=== PATIENT | female | born 1960 | race Caucasian/White ===

== ENCOUNTER 2024-11-15 07:39 | Inpatient (IN) | payer MEDICAID ==
[~2024-11-15] VITALS: Ht 160 cm; Wt 50.8 kg
[2024-11-15 08:52] LABS: MEAN PLATELET VOLUME 9.1 FL (7.4-10.4); RED CELL DISTRIBUTION WIDTH 15.8 % (11.5-14.5)
[2024-11-15 09:02] LABS: CREATININE 1.03 MG/DL (0.40-0.90); TOTAL CARBON DIOXIDE 26.7 MMOL/L (24-32); eCRCL 42 ML/MIN; eGFR 54 ML/MIN
--- NOTE | 2024-11-15 09:14 | Physician Documentation ---
History of Present Illness General Chief Complaint: Vomiting Stated Complaint: VOMITING Time Seen by MD: 08:49 Primary Medical Doctor: RANDELL Mode of Arrival: POV, Ambulatory History of Present Illness Initial Comments The patient is a 64-year-old female who presents here with nausea and vomiting for the past 10 days. She is a poor historian but reports a history of hypertension and previous surgery on her aorta and possibly an iliofemoral bypass, 3-4 years ago. She denies abdominal pain, diarrhea. She does not know what medications she takes. She feels dehydrated. She has had very small bowel movements and passed gas. Medication Reconciliation Allergies: Coded Allergies: No Known Allergies (Unverified , 11/15/24) Review of Systems ROS Constitutional: Denies chills, fatigue, fever, weight gain or weight loss. HEENT: Denies hearing loss, sinus pressure or visual changes. Respiratory: Denies cough, shortness of breath or wheezing. Cardiovascular: Denies chest pain, pain while walking (claudication), edema or palpitations. Gastrointestinal: Nausea and vomiting for the past 10 days, no bleeding Genitourinary: Denies painful urination (dysuria), excessive amount of urine (polyuria) or urinary frequency. Metabolic/Endocrine: Denies cold intolerance, heat intolerance, excessive thirst (polydipsia) or excessive hunger (polyphagia). Neurological: Denies dizziness, extremity numbness, extremity weakness, headaches, seizures or tremors. Psychiatric: Denies anxiety or depression. Integumentary: Denies breast discharge, breast lump, hives, mole change(s), rash or skin lesion. Musculoskeletal: Denies back pain, joint pain, joint swelling or neck pain. Hematologic: Denies easily bleeding, easily bruises, lymphedema or issues with blood clots. Immunologic: Denies food allergies or seasonal allergies. Physical Exam Physical Exam Vital Signs: Temperature: 96.6, Source: Temporal, Heart Rate: 87, Respiratory Rate: 18, BP: 112/76, Pulse Oximetry: 96, Weight: 46.820 Oxygen Flow Rate: 0 Physical Exam Physical Exam Vitals and nursing note reviewed. Constitutional: General: Patient is awake, alert, oriented x 4 in no acute distress and well appearing. Speech is clear and lucid. Appearance: Normal appearance. Patient is not ill-appearing, toxic-appearing or diaphoretic. HENT: Head: Normocephalic and atraumatic. Mouth/Throat: Mouth: Mucous membranes are dry. Pharynx: Oropharynx is clear. Eyes: General: No scleral icterus. Extraocular Movements: Extraocular movements intact. Pupils: Pupils are equal, round, and reactive to light. Neck: Supple, no Kernig or Brudzinski sign. Cardiovascular: Rate and Rhythm: Normal rate and regular rhythm. Heart sounds: No murmur heard. Pulmonary: Effort: No respiratory distress. Breath sounds: No wheezing, rhonchi or rales. Abdominal: General: There is no distension. Palpations: There is no fluid wave, hepatomegaly or mass. Tenderness: There is no abdominal tenderness. There is no guarding. Musculoskeletal: General: No swelling or deformity. Skin: Coloration: Skin is not jaundiced. Findings: No erythema or rash. Neurological: Mental Status: Patient is alert. Progress Results/Orders Results/Orders Orders - HENRIQUE BENEDICT MD Ct Abdomen Pelvis (11/15/24 09:30) Page Hospitalist (11/15/24 13:04) Completed Orders - HENRIQUE BENEDICT MD Cbc/Diff (11/15/24 08:29) Lipase (11/15/24 08:29) CMP (11/15/24 08:29) Man Diff (11/15/24 08:36) Ct Abdomen Pelvis (11/15/24 09:30) Normal Saline 1000ml (0.9% Sodium Chlori (11/15/24 09:10) Normal Saline 1000ml (0.9% Sodium Chlori (11/15/24 09:10) Potassium Cl 10meq/100ml Bag (Potassium (11/15/24 09:10) Magnesium Sulf-Water 4g/100ml (Magnesium (11/15/24 09:10) Iohexol 300mg/Ml 100ml Inj. (Omnipaque-3 (11/15/24 09:17) Ua W/Microscopic, Cult If Ind (11/15/24 10:37) Medications Received in ER Medications (Trade) Dose Ordered Sig/Kacey Route PRN Reason Start Time Stop Time Status Last Admin Dose Admin Sodium Chloride 1,000 ml @ 1,000 mls/hr ONCE ONCE IV 11/15/24 09:10 11/15/24 10:09 DC 11/15/24 09:49 1,000 MLS/HR Sodium Chloride 1,000 ml @ 1,000 mls/hr ONCE ONCE IV 11/15/24 09:10 11/15/24 10:09 DC 11/15/24 09:50 1,000 MLS/HR Potassium Chloride 100 ml @ 100 mls/hr Q1H IV 11/15/24 09:10 11/15/24 10:09 DC 11/15/24 10:16 100 MLS/HR Magnesium Sulfate 100 ml @ 25 mls/hr ONCE ONCE IV 11/15/24 09:10 11/15/24 13:09 DC 11/15/24 10:21 25 MLS/HR Vital Signs 11/15/24 11/15/24 11/15/24 11/15/24 07:47 08:14 09:01 09:41 Temp 96.6 96.6 96.6 Pulse 98 87 98 Resp 16 16 18 17 B/P (MAP) 112/81 112/76 (88) 147/79 (101) Pulse Ox 95 96 98 O2 Flow Rate 0 0 0 11/15/24 11/15/24 10:59 12:11 Temp 96.6 96.6 Pulse 86 85 Resp 20 19 B/P (MAP) 124/69 (87) 119/69 (86) Pulse Ox 91 95 O2 Flow Rate 0 2.0 Laboratory Tests Test 11/15/24 08:36 11/15/24 10:37 White Blood Count 10.5 Red Blood Count 5.95 H Hemoglobin 19.1 *H Hematocrit 57.7 H Mean Corpuscular Volume 97.0 Mean Corpuscular Hemoglobin 32.1 H Mean Corpuscular Hemoglobin Concent 33.1 Red Cell Distribution Width 15.8 H Platelet Count 313 Mean Platelet Volume 9.1 Neutrophils (%) (Auto) 78.4 H Lymphocytes (%) (Auto) 5.0 L Monocytes (%) (Auto) 16.0 H Eosinophils (%) (Auto) 0.3 Basophils (%) (Auto) 0.3 Neutrophils # (Auto) 8.2 H Lymphocytes # (Auto) 0.5 L Monocytes # (Auto) 1.7 H Eosinophils # (Auto) 0.0 Basophils # (Auto) 0.0 CBC Comment Differential Total Cells Counted 100 Neutrophils % (Manual) 43.0 Band Neutrophils % 29.0 H Lymphocytes % (Manual) 11.0 L Monocytes % (Manual) 16.0 H Eosinophils % (Manual) 1.0 Platelet Estimate Normal Red Blood Cell Morphology Normal Basophilic Stippling Sodium Level 128 L Potassium Level 3.3 L Chloride Level 84 L Carbon Dioxide Level 26.7 Anion Gap 17 H Blood Urea Nitrogen 40 H Creatinine 1.03 H Estimated GFR/1.73 m2 54 BUN/Creatinine Ratio 38.8 H Glucose Level 95 Calcium Level 8.7 Total Bilirubin 0.7 Aspartate Amino Transf (AST/SGOT) 16 Alanine Aminotransferase (ALT/SGPT) 12 Alkaline Phosphatase 71 Total Protein 7.8 Albumin 3.5 Globulin 4.3 Albumin/Globulin Ratio 0.8 L Lipase 15 L Chemistry Comments Urine Specimen Description Cln catch midstream Urine Color Yellow Urine Clarity Clear Urine pH 6.0 Urine Specific Icard <=1.005 Urine Protein Trace Urine Glucose (UA) Negative Urine Ketones >=80 Urine Occult Blood Trace-intact Urine Nitrite Negative Urine Bilirubin Small Urine Urobilinogen 0.2 Urine Leukocyte Esterase Negative Urine RBC 3-10 Urine WBC 0-4 Urine Squamous Epithelial Cells Moderate Urine Bacteria Few Urine Culture Indicated Not ind Volume Urine Centrifuged 10 ml Urine Comment Medical Decision Making Findings This 64-year-old female presents with 10 days of nausea and vomiting, especially at night. She is dehydrated. She has hyponatremia, hypochloremia and hypokalemia. I am hydrating her in providing electrolyte replacement. I am also getting a CT scan or abdomen vis-a-vis her prior aortic surgery. She will require admission. Departure Disposition: ADMITTED INPATIENT Admission Level of Care: Med/Surg Impression: Primary Impression: Nausea & vomiting Additional Impression: Dehydration with hyponatremia Condition: Stable Referrals: NO PRIMARY CARE PROVIDER (PCP) Signature Scribe Signature: . Attestation: . HENRIQUE BENEDICT MD Nov 15, 2024 09:14
[2024-11-15] MEDS ORDERED: iohexol 300mg/ml 100ml inj. ONE (09:17)
[2024-11-15] MEDS: normal saline 1000ml 1,000 ML IV ONE ×2 (09:49→09:50)
[2024-11-15 10:02] LABS: BANDS% (MANUAL) 29.0 % (0-10); EOSINOPHILS % (MANUAL) 1.0 % (0-6); LYMPHOCYTES % (MANUAL) 11.0 % (21-51); MONOCYTES % (MANUAL) 16.0 % (2-12); NEUTROPHILS % (MANUAL) 43.0 % (42-75)
[2024-11-15 10:03] LABS: PLATELET ESTIMATE NORMAL
[2024-11-15] MEDS: potassium CL 10mEq/100ml bag 100 ML IV SCH (10:16)
[2024-11-15] MEDS: magnesium sulf-water 4G/100mL 100 ML IV ONE (10:21)
--- NOTE | 2024-11-15 10:22 | RADIOLOGY REPORT ---
CT CT ABDOMEN PELVIS W/ IV CONTRAST INDICATION: N/V, prior aortic surgery EXAM DATE: 11/15/2024 09:23 AM COMPARISON: None RADIATION DOSE: CTDIvol: 5 mGy, DLP: 245 mGy*cm PROCEDURE: Helical CT images were obtained of the abdomen and pelvis with IV contrast Sagittal and coronal reconstructions are provided. ORAL CONTRAST: None. ADDITIONAL IMAGES / REFORMATS: None All CT scans at this medical facility are performed using dose modulation techniques as appropriate to a performed exam including the following: Automated exposure control was utilized; adjustment of the MA and/or KV according to patient size; and use of iterative reconstruction technique. FINDINGS: LUNG BASE: Moderate emphysema. LIVER: Normal. GALLBLADDER AND BILIARY TREE: No calcified gallstones. Normal caliber wall. No intra- or extrahepatic biliary ductal dilation. PANCREAS: Normal. SPLEEN: Normal. BOWEL: Multiple distended loops of small bowel measures up to 3.4 cm could be ileus or less likely obstruction. Appendix appears normal. Moderate colonic diverticulosis. ADRENALS: Normal. KIDNEYS AND URETER: Normal. BLADDER: Normal. REPRODUCTIVE ORGANS: Normal. LYMPH NODES:No lymphadenopathy. PERITONEUM: Trace pelvic fluid is nonspecific. VESSELS: Scattered atherosclerotic calcifications are noted. Aortoiliac bypass graft appears patent. RETROPERITONEUM: Normal. ABDOMINAL WALL: Normal. BONES: Scattered osseous degenerative changes are noted. IMPRESSION: Multiple distended loops of small bowel measures up to 3.4 cm could be ileus or less likely obstruction.
[2024-11-15 10:49] LABS: LEUKOCYTE ESTERASE ,URINE NEGATIVE (Neg); NITRITES, URINE NEGATIVE (Neg); OCCULT BLOOD,URINE TRACE-INTACT (Neg)
[2024-11-15 10:57] LABS: UA COLLECTION TYPE CLN CATCH MIDSTREAM
[2024-11-15 11:36] LABS: SQUAMOUS EPITHELIAL CELL,UR MODERATE /LPF (FEW)
[2024-11-15] MEDS ORDERED: magnesium Cl slow-release 64mg tablet PO PRN (14:30)
[2024-11-15] MEDS ORDERED: potassium Cl 20 mEq SR tablet PO PRN (14:30)
[2024-11-15] MEDS ORDERED: mag hydrox/Alum hydrox/simeth 30ml oral suspension PO PRN (14:30)
[2024-11-15] MEDS ORDERED: magnesium sulf-water 4G/100mL 100 ML IV PRN (14:30)
[2024-11-15] MEDS ORDERED: magnesium sulf-water 2g/50mL 50 ML IV PRN (14:30)
[2024-11-15] MEDS ORDERED: magnesium hydroxide 30ml (MOM) UD suspension PO PRN (14:30)
[2024-11-15] MEDS: ondansetron/PF 4mg/2ml inj IV SCH (15:34)
[2024-11-15] MEDS: normal saline 1000ml 1,000 ML IV SCH (15:34)
[2024-11-15 15:38] LABS: APTT 31 SECONDS (22-32); INR 1.1 INR
[2024-11-15 15:59] LABS: CREATININE 0.83 MG/DL (0.40-0.90); PHOSPHORUS 2.9 MG/DL (2.3-4.5); eCRCL 52 ML/MIN; eGFR 70 ML/MIN
[2024-11-15 16:03] LABS: TOTAL CARBON DIOXIDE 24.3 MMOL/L (24-32)
--- NOTE | 2024-11-15 17:37 | RADIOLOGY REPORT ---
CLINICAL HISTORY: post ng tube placement TECHNIQUE: Single view of the chest was obtained. COMPARISON: None FINDINGS: The heart size and pulmonary vasculature are normal. The lungs are clear. NG tube terminates at the stomach. IMPRESSION: NO ACUTE CARDIOPULMONARY PROCESS.
--- NOTE | 2024-11-15 17:46 | HISTORY AND PHYSICAL-Residence ---
History & Physical Providers to Resident Creating Document: JENNIFER DUQUE RES ~ History of Present Illness Primary Medical Doctor: RANDELL Reason for Admit\Complaint: Nausea and vomiting History of Present Illness 64-year-old female with history of hypertension and stroke came to the ER with complaints of nausea and vomiting for the past 10 days. She states that she vomits as soon as she eats or drinks anything and that it is sometimes yellow and sometimes dark green. She denies hematemesis and abdominal pain. She is a poor historian but reports minimal p.o. intake for the last 10 days including fluids due to nausea and vomiting. She reports that her last bowel movement was 2 weeks ago but has passage of flatus. She states that she feels lightheaded but has had no falls. She states that she has lost weight but unable to specify how much. She denies recent travel, change in foods or medications, fever, chills. She states that she has central chest discomfort when she is throwing up and feels weak. She also states that she has chronic lower back pain and attributes it to sciatic nerve pain. 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 She denies chest pain, palpitations, shortness of breath, headache, loss of consciousness, confusion, pruritus, burning micturition, tingling in extremities, swelling of lower extremities. Allergies: Coded Allergies: No Known Allergies (Unverified , 11/15/24) Past Medical History Past Medical History Hypertension Stroke Past Surgical History Surgical History Comment Surgery on her aorta Iliofemoral bypass Past Social History Social History Comment She quit smoking 3 years ago. She used to smoke 1 pack/day for approximately 20 years She denies drinking alcohol She denies any recreational drug use She lives alone at home ROS ROS Constitutional: She reports weight loss and lightheadedness, No fever, chills, weight gain Eyes: No pain, erythema, discharge, blurring of vision ENT: No sore throat, epistaxis, tinnitus Cardiovascular: No chest pain, palpitations, syncope, lower extremity edema, paroxysmal nocturnal dyspnea Respiratory: No Shortness of breath and cough, No hemoptysis. Gastrointestinal: Reports Nausea and vomiting, constipation and decreased appetite. No Abdominal pain, diarrhea, hematemesis or melena. Musculoskeletal: No swelling, pain in bilateral lower legs. Integumentary: No change in skin, hair, nails. No swelling, bruising, abrasions Neurologic: Residual left-sided weakness, No headache, neck pain, numbness or tingling of the extremities, Psychiatric: No delusions, depression, loss of interest in normal activity or change in sleep pattern, hallucinations, suicidal ideations Endocrine: Reports decreased appetite, No fatigue, no weakness. polydipsia, polyuria, heat or cold intolerance, sweating, dry skin Hematological: No bleeding, petechiae, bruising Allergies: No asthma or urticaria Exam Vitals: Vital Signs Date Time Temp Pulse Resp B/P (MAP) Pulse Ox O2 Delivery O2 Flow Rate FiO2 11/15/24 17:00 90 16 125/65 (85) 96 0 11/15/24 15:51 97.9 General: Awake , alert, and oriented x4, appears cachectic, in mild distress HEENT: Atraumatic, normocephalic, EOMI, anicteric sclera ; pink conjunctiva, dry mucous membranes Neck: Trachea midline. Supple, full range of motion, no JVD Cardiac: Regular rhythm, regular rate with no murmurs all over the precordium. Respiratory: Equal breath sounds bilaterally, no tachypnea, no wheezing ,rub or rales, Chest wall is symmetric and without deformity. Gastrointestinal: Abdomen symmetric, non-distended, soft, non-tender, mildly sluggish bowel sounds, no hepatosplenomegaly Musculoskeletal: No pedal edema, no cyanosis Neurological: Speech is clear, alert, and oriented x 4. No motor or sensory deficit, deep tendon reflexes normal, cerebellar intact. Cranial nerves II-XII intact. Skin: Warm and dry Diagnostic Data Last Recorded Lab Results: 11/15/24 0836 11/15/24 1453 Diagnostic Data: Laboratory Tests Test 11/15/24 14:53 Prothrombin Time 11.0 SECONDS (9.0-12.0) INR International Normalized Ratio 1.1 INR Activated Partial Thromboplast Time 31 SECONDS (22-32) Coagulation Comments Additional Plan Nausea, vomiting and constipation probably 2/2 ileus vs small bowel obstruction CBC is normal Sodium is 128, potassium 3.3 Creatinine is elevated, probably due to dehydration Liver panel normal Lipase is [address] shows multiple distended loops of small bowel, measuring up to 3.4 cm, could be ileus or less likely obstruction Plan: Started on NPO NG tube placed- 150 mL dark green gastric drainage Started on NS 100 mL/hour, IV Zofran 4 mg q.6h, IV Protonix 40 mg Monitor electrolytes We will consider surgery if deterioration of patient Hyponatremia, likely hypovolemic secondary to vomiting Sodium was 128 on admission 2 L NS given in ED and started NS at 100 mL Sodium has up trended to 133 Monitor BMP Hypokalemia possibly secondary to vomiting Potassium was 3.3 on admission Potassium replacement protocol in place Monitor BMP ERIK, probably due to prerenal-dehydration Vasomotor nephropathy Creatinine was 1.03 initially, with BUN of 40 BUN/Cr was elevated-38.8 Continue fluids Monitor BNP Hypertension Vitals are normal We will continue home medication once med reconciliation done Monitor blood pressure #Pending med reconciliation Code status: Full code DVT prophylaxis: Heparin GI prophylaxis: Protonix Pain management: Tylenol p.r.n. Diet/nutrition: NPO Prognosis: Guarded Disposition: Continue medical management, PT eval and DC plan Resident MD attestation: The patient note has been reviewed and supervised by senior residents PGY-2/ PGY-3. Patient was seen, examined and discussed with attending physician. Jennifer Duque MD Internal Medicine resident, PGY-1 Date of Service: Nov 15, 2024 Billing Provider: GILBERT WOODS MD Common Visit Codes: 42982-[facility] INP/OBS CARE (HIGH) JENNIFER DUQUE, RES Nov 15, 2024 17:46 GILBERT WOODS MD Nov 16, 2024 08:43
[2024-11-15 17:59] LABS: LEUKOCYTE ESTERASE ,URINE NEGATIVE (Neg); NITRITES, URINE NEGATIVE (Neg); OCCULT BLOOD,URINE TRACE-INTACT (Neg)
[2024-11-15 18:12] LABS: UA COLLECTION TYPE URINAL
[2024-11-15 18:14] LABS: SQUAMOUS EPITHELIAL CELL,UR FEW /LPF (FEW)
[2024-11-15] MEDS: docusate sod 100mg capsule PO SCH (19:39)
[2024-11-15 19:43] VITALS: BP 117/66; PULSE 91; RESP 17; TEMP 97.5; O2SAT 92
[2024-11-15] MEDS: heparin, porcine 5000 units/ml vial SQ SCH (19:43)
[2024-11-15 20:00] VITALS: BP_SYST 116; BP_SYST 117; BP_SYST 125; BP_DIAS 66; BP_DIAS 67; BP_DIAS 71; PULSE 100; PULSE 105; PULSE 91; RESP 17; O2SAT 92
[2024-11-15] MEDS: K and/or MAG REPLACEMENT MC SCH (20:00)
[2024-11-15 20:24] LABS: CHOL/HDL RATIO 1.9 (0.00-4.99); LDL CHOLESTEROL 30 MG/DL (50-100)
[2024-11-15] MEDS: potassium Cl 40MEQ/1/2NS 520ml 520 ML IV PRN (22:00)
[2024-11-16] VITALS (7 sets, daily range): BP systolic 106–149; BP diastolic 60–68; PULSE 69–89; RESP 14–16; TEMP 97.5–98.3; O2SAT 92–94
[2024-11-16 04:42] LABS: MEAN PLATELET VOLUME 9.2 FL (7.4-10.4); RED CELL DISTRIBUTION WIDTH 15.8 % (11.5-14.5)
[2024-11-16 04:55] LABS: CHOL/HDL RATIO 2.0 (0.00-4.99); CREATININE 0.62 MG/DL (0.40-0.90); LDL CHOLESTEROL 24 MG/DL (50-100); TOTAL CARBON DIOXIDE 23.5 MMOL/L (24-32); eCRCL 70 ML/MIN; eGFR > 90 ML/MIN
[2024-11-16 07:57] LABS: LYMPHOCYTES % (MANUAL) 8.0 % (21-51); NEUTROPHILS % (MANUAL) 35.0 % (42-75)
[2024-11-16 07:58] LABS: BANDS% (MANUAL) 40.0 % (0-10)
[2024-11-16 07:59] LABS: EOSINOPHILS % (MANUAL) 2.0 % (0-6); MONOCYTES % (MANUAL) 15.0 % (2-12)
[2024-11-16 08:00] LABS: PLATELET ESTIMATE NORMAL
[2024-11-16] MEDS: dextrose 50%-water 50ml dispensing syringe IV ONE (12:34)
[2024-11-16] MEDS ORDERED: BENA10TA74 PO (16:33)
[2024-11-16] MEDS ORDERED: APIX5TAB3 PO (16:33)
[2024-11-16] MEDS ORDERED: HYDR500C2 PO (16:33)
[2024-11-16] MEDS ORDERED: ASPI-1265 PO (16:33)
[2024-11-16] MEDS ORDERED: ATOR40TA72 PO (16:33)
--- NOTE | 2024-11-16 19:44 | PROGRESS NOTE- Residence ---
Progress Note - Resident Providers to CC Resident Creating Document: JENNIFER DUQUE RES ~ Antibiotic Timeout Antibiotic Ordered?: No Subjective Patient was seen and examined bedside. She states that she has passed flatus, but did not have a bowel movement. She does not report any nausea. She states that her symptoms have improved. She is not in apparent distress. Objective Vital Signs Date Time Temp Pulse Resp B/P (MAP) Pulse Ox O2 Delivery O2 Flow Rate FiO2 11/16/24 08:30 16 92 Room Air 0.0 11/16/24 08:01 97.5 76 117/60 (79) Result Diagram: 11/16/24 0420 11/16/24 0420 Awake , alert, and oriented x4, appears cachectic, in mild distress HEENT: Atraumatic, normocephalic, EOMI, anicteric sclera ; pink conjunctiva, dry mucous membranes Neck: Trachea midline. Supple, full range of motion, no JVD Cardiac: Regular rhythm, regular rate with no murmurs all over the precordium. Respiratory: Equal breath sounds bilaterally, no tachypnea, no wheezing ,rub or rales, Chest wall is symmetric and without deformity. Gastrointestinal: Abdomen symmetric, non-distended, soft, non-tender, hypoactive bowel sounds, no hepatosplenomegaly Musculoskeletal: No pedal edema, no cyanosis Neurological: Speech is clear, alert, and oriented x 4. No motor or sensory deficit, deep tendon reflexes normal, cerebellar intact. Cranial nerves II-XII intact. Skin: Warm and dry Coagulation Studies Laboratory Tests Test 11/15/24 14:53 Prothrombin Time 11.0 SECONDS (9.0-12.0) INR International Normalized Ratio 1.1 INR Activated Partial Thromboplast Time 31 SECONDS (22-32) Coagulation Comments Assessment Assessment 64-year-old female presented with complaints of nausea and vomiting, admitted for possible ileus or obstruction. Plan Plan Nausea, vomiting and constipation probably 2/2 ileus vs small bowel obstruction CBC is normal Sodium is 128, potassium 3.3 Creatinine is elevated, probably due to dehydration Liver panel normal Lipase is [address] shows multiple distended loops of small bowel, measuring up to 3.4 cm, could be ileus or less likely obstruction Plan: Started on NPO NG tube placed- 150 mL dark green gastric drainage Started on NS 100 mL/hour, IV Zofran 4 mg q.6h, IV Protonix 40 mg Monitor electrolytes We will consider surgery if deterioration of patient 11/16/24: Symptoms improved, passed flatus Her glucose was 75, started her on D5 NS Started on clear liquid diet, which she tolerated Advanced her to full liquid diet, please continue monitoring her tolerance Started Colace 100 mg p.o BID Since she has started clear liquid diet, we have discontinued her D5 NS and continued NS at 100 mL/hour Hyponatremia, likely hypovolemic secondary to vomiting Sodium was 128 on admission 2 L NS given in ED and started NS at 100 mL Sodium has up trended to 133 Monitor BMP 11/16/24: Sodium is 131 Continue NS at 100 mL/hour Monitor BMP Hypokalemia possibly secondary to vomiting Potassium was 3.3 on admission Potassium replacement protocol in place Monitor BMP 11/16/24: Potassium up trended to 4.3 Monitor BMP ERIK, probably due to prerenal-dehydration Vasomotor nephropathy Creatinine was 1.03 initially, with BUN of 40 BUN/Cr was elevated-38.8 Continue fluids Monitor BMP 11/16/24: Creatinine downtrended to 0.62 BUN downtrended to 25 BUN/Cr elevated to 40.3 Continue fluids Monitor BMP Coronary artery disease Continued her home medications aspirin, apixaban, atorvastatin Lipid profile normal Follow up outpatient Hypertension Vitals are normal We will continue home medication once med reconciliation done Monitor blood pressure Dupuytren's contracture Follow up outpatient Sciatic pain 11/16/24: Ordered tramadol 50 mg p.o. Follow up outpatient Code status: Full code DVT prophylaxis: Eliquis GI prophylaxis: Protonix Pain management: Tylenol p.r.n. Diet/nutrition: Full liquid diet Prognosis: Guarded Disposition: Continue medical management, advance diet as tolerated, PT eval and DC plan Resident attestation: The patient note has been reviewed and supervised by senior residents PGY-2/ PGY-3. Patient was seen, examined and discussed with attending physician. Jennifer Duque MD Internal Medicine resident, PGY-1 [facility] Date of Service: Nov 16, 2024 Billing Provider: GILBERT WOODS MD, PREETHI, RES Nov 16, 2024 19:44
[2024-11-16] MEDS: docusate sod 100mg capsule PO SCH (20:35)
[2024-11-17] VITALS (9 sets, daily range): BP systolic 100–112; BP diastolic 62–76; PULSE 13–95; RESP 14–20; TEMP 97.6–98.4; O2SAT 90–93
[2024-11-17] MEDS: ondansetron/PF 4mg/2ml inj IV PRN (00:05)
[2024-11-17 04:48] LABS: MEAN PLATELET VOLUME 9.0 FL (7.4-10.4); RED CELL DISTRIBUTION WIDTH 15.7 % (11.5-14.5)
[2024-11-17 04:54] LABS: CREATININE 0.59 MG/DL (0.40-0.90); TOTAL CARBON DIOXIDE 22.9 MMOL/L (24-32); eCRCL 73 ML/MIN; eGFR > 90 ML/MIN
[2024-11-17 07:26] LABS: BANDS% (MANUAL) 9.0 % (0-10); EOSINOPHILS % (MANUAL) 2.0 % (0-6); LYMPHOCYTES % (MANUAL) 10.0 % (21-51); MONOCYTES % (MANUAL) 14.0 % (2-12); NEUTROPHILS % (MANUAL) 65.0 % (42-75); PLATELET ESTIMATE NORMAL
[2024-11-17] MEDS: dextrose 50%-water 50ml dispensing syringe IV ONE (07:48)
--- NOTE | 2024-11-17 15:21 | PROGRESS NOTE- Residence ---
Progress Note - Resident Providers to CC Resident Creating Document: JENNIFER DUQUE RES ~ Antibiotic Timeout Antibiotic Ordered?: No Subjective Patient was seen and examined bedside. She reported that she vomited last night after eating chicken broth. She states that she has diarrhea since yesterday. Objective Vital Signs Date Time Temp Pulse Resp B/P (MAP) Pulse Ox O2 Delivery O2 Flow Rate FiO2 11/17/24 10:27 107/63 (78) 104/66 (79) 102/65 (77) 11/17/24 10:19 84 11/17/24 10:00 98.4 14 92 Room Air 11/17/24 07:49 0.0 Result Diagram: 11/17/24 0418 11/17/24 0418 Awake , alert, and oriented x4, appears cachectic, in mild distress HEENT: Atraumatic, normocephalic, EOMI, anicteric sclera ; pink conjunctiva, dry mucous membranes Neck: Trachea midline. Supple, full range of motion, no JVD Cardiac: Regular rhythm, regular rate with no murmurs all over the precordium. Respiratory: Equal breath sounds bilaterally, no tachypnea, no wheezing ,rub or rales, Chest wall is symmetric and without deformity. Gastrointestinal: Abdomen symmetric, non-distended, soft, non-tender, hypoactive bowel sounds, no hepatosplenomegaly Musculoskeletal: No pedal edema, no cyanosis Neurological: Speech is clear, alert, and oriented x 4. No motor or sensory deficit, deep tendon reflexes normal, cerebellar intact. Cranial nerves II-XII intact. Skin: Warm and dry Coagulation Studies Laboratory Tests Test 11/15/24 14:53 Prothrombin Time 11.0 SECONDS (9.0-12.0) INR International Normalized Ratio 1.1 INR Activated Partial Thromboplast Time 31 SECONDS (22-32) Coagulation Comments Assessment Assessment 64-year-old female presented with complaints of nausea and vomiting, admitted for possible ileus or obstruction. Plan Plan Nausea, vomiting and constipation probably 2/2 ileus vs small bowel obstruction CBC is normal Sodium is 128, potassium 3.3 Creatinine is elevated, probably due to dehydration Liver panel normal Lipase is [address] shows multiple distended loops of small bowel, measuring up to 3.4 cm, could be ileus or less likely obstruction Plan: Started on NPO NG tube placed- 150 mL dark green gastric drainage Started on NS 100 mL/hour, IV Zofran 4 mg q.6h, IV Protonix 40 mg Monitor electrolytes We will consider surgery if deterioration of patient 11/16/24: Symptoms improved, passed flatus Her glucose was 75, started her on D5 NS Started on clear liquid diet, which she tolerated Advanced her to full liquid diet, please continue monitoring her tolerance Started Colace 100 mg p.o BID Since she has started clear liquid diet, we have discontinued her D5 NS and continued NS at 100 mL/hour 11/17/24: Discontinued Colace 100 mg b.i.d. Restarted clear liquid diet NG tube removed Follow up CT with oral contrast Follow up C diff toxin results Hyponatremia, likely hypovolemic secondary to vomiting Sodium was 128 on admission 2 L NS given in ED and started NS at 100 mL Sodium has up trended to 133 Monitor BMP 11/16/24: Sodium is 131 Continue NS at 100 mL/hour Monitor BMP 11/17/24: Sodium is 136 Continue NS at 100 mL/hr Monitor BMP Hypokalemia possibly secondary to vomiting Potassium was 3.3 on admission Potassium replacement protocol in place Monitor BMP 11/16/24: Potassium up trended to 4.3 Monitor BMP 11/17/24: Potassium is 3.5, continue monitoring ERIK, probably due to prerenal-dehydration Vasomotor nephropathy Creatinine was 1.03 initially, with BUN of 40 BUN/Cr was elevated-38.8 Continue fluids Monitor BMP 11/16/24: Creatinine downtrended to 0.62 BUN downtrended to 25 BUN/Cr elevated to 40.3 Continue fluids Monitor BMP 11/17/24: Creatinine is 0.59 BUN downtrended to 15 BUN/Cr downtrended to 25.4 Continue fluids Monitor BMP after CT with oral contrast Coronary artery disease Continued her home medications aspirin, apixaban, atorvastatin Lipid profile normal Follow up outpatient Hypertension Continued her home medication lisinopril 10 mg p.o. daily Dupuytren's contracture Follow up outpatient Sciatic pain 11/16/24: Ordered tramadol 50 mg p.o. Follow up outpatient Code status: Full code DVT prophylaxis: Eliquis GI prophylaxis: Protonix Pain management: Tylenol p.r.n. Diet/nutrition: Clear liquid diet Prognosis: Guarded Disposition: Continue medical management, advance diet as tolerated, PT eval and DC plan Resident attestation: The patient note has been reviewed and supervised by senior residents PGY-2/ PGY-3. Patient was seen, examined and discussed with attending physician. Jennifer Duque MD Internal Medicine resident, PGY-1 [facility] Date of Service: Nov 17, 2024 Billing Provider: MAYA TRAN MD Common Visit Codes: [id number] INP/OBS CARE(HIGH) JENNIFER DUQUE, RES Nov 17, 2024 15:21 MAYA TRAN MD Nov 17, 2024 19:21
[2024-11-17] MEDS: IOHEXOL 12MG/ML oral solution 500 ML BOTTLE PO ONE (15:22)
[2024-11-17] MEDS ORDERED: ondansetron/PF 4mg/2ml inj IV PRN (15:35)
[2024-11-17 18:01] LABS: C DIFF ANTIGEN NEGATIVE (NEGATIVE); C DIFF SPECIMEN=DIARRHEA? ACCEPTABLE; C DIFFICILE TOXINS A&B NEGATIVE (Neg)
--- NOTE | 2024-11-17 20:29 | RADIOLOGY REPORT ---
Indication: SBO Technique: CT axial images of the abdomen and pelvis are obtained without contrast. Coronal and sagittal reformats were obtained. Radiation Dose Information: CTDI volume is 7.2 mGy. Dose-length product is 322 mGy*cm Comparison: CT CT ABDOMEN PELVIS W/ IV CONTRAST on DOS: 11/15/24 FINDINGS: There is limited interpretation of the abdomen and pelvis without administration of intravenous contrast. The lung bases demonstrate atelectasis. Tiny bilateral pleural effusions. Adrenal glands, spleen, pancreas and liver unremarkable in shape. Mild pericholecystic edema. Kidneys demonstrate no hydronephrosis. Stomach is partially distended. There are multiple loops of abnormally dilated small bowel measuring up to approximately 4 cm in diameter. There is bowel wall thickening of the small bowel, increased from the previous examination. There is mesenteric edema, stranding and small amount of ascites fluid, increased from previous examination. Colonic diverticula. Contrast within the large bowel. Aortobifem bypass graft. Swirling of the mesentery. The SMV is displaced to the left of the SMA. Partially distended. Free pelvic fluid. Soft tissue edema / anasarca. [id number] thoracolumbar degenerative disc disease. IMPRESSION: Limited evaluation without contrast. Diffuse small bowel dilatation, bowel wall thickening with surrounding stranding, small amount of ascites fluid. Overall this is increased from the previous examination. Differential considerations would include enteritis, inflammatory disease, partial SBO. Swirling of the mesentery. Recommend surgical consultation to exclude malrotation. Contrast within the colon. Colonic diverticular disease. Pericholecystic edema / stranding which can be secondary to cholecystitis. Tiny bilateral pleural effusions. Other findings as described.
[2024-11-17] MEDS ORDERED: barium sulfate 450ml oral suspension PO SCH (21:00)
[2024-11-18 03:43] VITALS: O2SAT 93
[2024-11-18 05:00] VITALS: BP 116/62; PULSE 84; RESP 20; TEMP 97.8; O2SAT 94
[2024-11-18 05:52] LABS: MEAN PLATELET VOLUME 9.2 FL (7.4-10.4); RED CELL DISTRIBUTION WIDTH 16.1 % (11.5-14.5)
[2024-11-18 06:10] LABS: CREATININE 0.77 MG/DL (0.40-0.90); TOTAL CARBON DIOXIDE 27.0 MMOL/L (24-32); eCRCL 56 ML/MIN; eGFR 76 ML/MIN
[2024-11-18 06:53] LABS: BANDS% (MANUAL) 4.0 % (0-10); EOSINOPHILS % (MANUAL) 3.0 % (0-6); LYMPHOCYTES % (MANUAL) 13.0 % (21-51); METAMYLEOCYTES% (MANUAL) 1.0 % (0-0); MONOCYTES % (MANUAL) 12.0 % (2-12); NEUTROPHILS % (MANUAL) 67.0 % (42-75); PLATELET ESTIMATE NORMAL
[2024-11-18] MEDS: pantoprazole 40mg Tablet.DR PO SCH (08:32)
[2024-11-18] MEDS: potassium Cl 20 mEq SR tablet PO PRN (08:43)
[2024-11-18 08:48] VITALS: RESP 20; O2SAT 94
[2024-11-18 10:00] VITALS: BP_SYST 120; BP_SYST 123; BP_SYST 130; BP_DIAS 74; BP_DIAS 76; BP_DIAS 78; PULSE 86; PULSE 89; PULSE 91; RESP 16; TEMP 97.8; O2SAT 93
--- NOTE | 2024-11-18 14:29 | PROGRESS NOTE- Residence ---
Progress Note - Resident Providers to CC Resident Creating Document: SHAWN JC RES ~ Antibiotic Timeout Antibiotic Ordered?: No Subjective Patient complained about the loose bowel motion on her full liquid diet although she has a craving for solid food especially crackers. The nurse reported that the patient does not want to run IV NS last night for some reason. The patient did not have any loose bowel this morning. Objective Vital Signs Date Time Temp Pulse Resp B/P (MAP) Pulse Ox O2 Delivery O2 Flow Rate FiO2 11/18/24 10:00 97.8 86 16 120/74 (89) 93 Room Air 11/18/24 08:48 0.0 11/18/24 03:43 21 Result Diagram: 11/18/24 0503 11/18/24 0503 Vitals were stable at the moment with temp 97.8 F, NC 84/minute, RR 20/minute, BP 116/62 mm Hg, pulse oximetry 94% on room air. On exam, General: Well alert, well oriented, not confused, not agitated, not in acute distress, well cooperated during the physical. HEENT: Conjunctive are pink, sclerae clear, no icterus, pupil is equal in both sides, reactive to light, no ear discharge, no pharyngeal erythema or an edema, mouth and lips are moist. Neck: Supple, no JVD, no lymphadenopathy and thyromegaly. Lungs:Equal air entry on both lungs, no additional sounds Heart: S1-S2 regular sinus rhythm and, regular rate, no gallops, no rubs, no murmurs Abdomen: No visible peristalsis, Bowel sounds present on auscultation, soft, nontender, no guarding, no rigidity Extremities: No obvious deformities, no pitting edema bilaterally, capillary refill intact, able to wiggle toes both sides, peripheral pulsations are intact on both sides [employer]: No focal neurological deficits, no motor and sensory weakness in all 4 extremities, could move all 4 extremities Musculoskeletal: No joint swelling, deformities, inflammations, and no scoliosis and back tenderness Skin: No active skin lesions and rashes Coagulation Studies Laboratory Tests Test 11/15/24 14:53 Prothrombin Time 11.0 SECONDS (9.0-12.0) INR International Normalized Ratio 1.1 INR Activated Partial Thromboplast Time 31 SECONDS (22-32) Coagulation Comments Assessment Assessment 64-year-old female presented with complaints of nausea and vomiting, admitted for possible ileus or obstruction. Plan Plan # Acute abdomen probably 2/2 ileus vs partial small bowel obstruction CBC is normal Sodium is 128, potassium 3.3 Creatinine is elevated, probably due to dehydration Liver panel normal Lipase is [address] shows multiple distended loops of small bowel, measuring up to 3.4 cm, could be ileus or less likely obstruction Plan: Started on NPO NG tube placed- 150 mL dark green gastric drainage Started on NS 100 mL/hour, IV Zofran 4 mg q.6h, IV Protonix 40 mg Monitor electrolytes We will consider surgery if deterioration of patient 11/16/24: Symptoms improved, passed flatus Her glucose was 75, started her on D5 NS Started on clear liquid diet, which she tolerated Advanced her to full liquid diet, please continue monitoring her tolerance Started Colace 100 mg p.o BID Since she has started clear liquid diet, we have discontinued her D5 NS and continued NS at 100 mL/hour 11/17/24: Discontinued Colace 100 mg b.i.d. 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 # Hyponatremia, likely hypovolemic secondary to vomiting Sodium was 128 on admission 2 L NS given in ED and started NS at 100 mL Sodium has up trended to 133 Monitor BMP 11/16/24: Sodium is 131 Continue NS at 100 mL/hour Monitor BMP 11/17/24: Sodium is 136 Continue NS at 100 mL/hr Monitor BMP 11/18/24: normalized sodium and continue IV NS # Hypokalemia possibly secondary to vomiting # hypomagnesemia Potassium was 3.3 on admission Potassium replacement protocol in place Monitor BMP 11/16/24: Potassium up trended to 4.3 Monitor BMP 11/17/24: Potassium is 3.5, continue monitoring 11/18/24: potassium is slightly low with no EKG and clinical symptoms -replace electrolytes including potassium and magnesium as per protocol # ERIK, probably due to prerenal-dehydration- possible renal tubular stasis # elevated BUN creatinine ratio >20 from dehydration # protein calorie malnutrition- moderate Creatinine was 1.03 initially, with BUN of 40 BUN/Cr was elevated-38.8 Continue fluids Monitor BMP 11/16/24: Creatinine downtrended to 0.62 BUN downtrended to 25 BUN/Cr elevated to 40.3 Continue fluids Monitor BMP 11/17/24: Creatinine is 0.59 BUN downtrended to 15 BUN/Cr downtrended to 25.4 Continue fluids Monitor BMP after CT with oral contrast 11/18/24: Corrected calcium show 8.9 which is normal, apparently low from the low serum protein -encourage protein diet # Coronary artery disease # Hypertension Continued her home medications aspirin, apixaban, atorvastatin Lipid profile normal Follow up outpatient 11/18/2024: LDL less than 55 -control the blood pressure and no orthostatic hypotension tests # Dupuytren's contracture # Sciatic pain -Follow up outpatient for the possible steroid injection or surgery 11/16/24: Ordered tramadol 50 mg p.o. Follow up outpatient Code status: Full code DVT prophylaxis: Eliquis GI prophylaxis: Protonix Pain management: Tylenol p.r.n. Diet/nutrition: Clear liquid diet Prognosis: Guarded Disposition: Continue medical management, advance diet as tolerated, PT eval and DC plan Resident MD attestation: Patient was seen, examined and discussed with attending physician, Dr. Jordan JC MD Internal Medicine Resident, PGY3 [facility] Date of Service: Nov 18, 2024 Billing Provider: DINORA HERNANDEZ TIN, FERNANDO Nov 18, 2024 14:29 DINORA HERNANDEZ DO Nov 18, 2024 16:25
[2024-11-18 18:00] VITALS: BP 114/66; PULSE 80; RESP 16; TEMP 98
[2024-11-18] MEDS: potassium Cl 20 mEq SR tablet PO ONE (18:20)
[2024-11-18] MEDS: diatr meglu/diatrizoate 30ml oral sol.-(3 dose) bottle PO SCH (20:36)
[2024-11-18 22:00] VITALS: BP 129/73; PULSE 88; RESP 18; TEMP 97.9; O2SAT 92
[2024-11-19 05:00] VITALS: BP 120/74; PULSE 82; RESP 18; TEMP 97.7; O2SAT 92
[2024-11-19 06:18] LABS: MEAN PLATELET VOLUME 8.7 FL (7.4-10.4); RED CELL DISTRIBUTION WIDTH 16.0 % (11.5-14.5)
[2024-11-19 06:40] LABS: CREATININE 0.78 MG/DL (0.40-0.90); TOTAL CARBON DIOXIDE 27.0 MMOL/L (24-32); eCRCL 55 ML/MIN; eGFR 75 ML/MIN
[2024-11-19 07:47] LABS: BANDS% (MANUAL) 11.0 % (0-10); EOSINOPHILS % (MANUAL) 2.0 % (0-6); LYMPHOCYTES % (MANUAL) 14.0 % (21-51); METAMYLEOCYTES% (MANUAL) 2.0 % (0-0); MONOCYTES % (MANUAL) 12.0 % (2-12); MYELOCYTES % (MANUAL) 1.0 % (0-0); NEUTROPHILS % (MANUAL) 58.0 % (42-75); PLATELET ESTIMATE NORMAL
[2024-11-19 08:31] VITALS: RESP 18; O2SAT 92
[2024-11-19 10:11] VITALS: RESP 18
--- NOTE | 2024-11-19 10:47 | RADIOLOGY REPORT ---
Indication: repeat ct, r/o sbo Technique: CT axial images of the abdomen and pelvis are obtained with oral. Coronal and sagittal reformats were obtained. Radiation Dose Information: CTDI volume is 8 mGy. Dose-length product is 346 mGy*cm Comparison: CT CT ABDOMEN PELVIS W/ ORAL CONTRAST on DOS: 11/17/24, FINDINGS: There is limited interpretation of the abdomen and pelvis without administration of intravenous contrast. Small bilateral pleural effusions. Bibasilar atelectasis /consolidation. Adrenal glands, spleen, pancreas and liver unremarkable in shape. No CT evidence for cholelithiasis. No hydronephrosis. Moderate gastric distention. Small bowel loops distended up to 3.1 cm. Small bowel wall thickening most pronounced in the distal ileum. Contrast extending to the rectum. Colonic diverticula. Mesenteric edema/stranding. Again noted is swirling of the mesentery. Aorto bifem bypass. Atherosclerotic disease. Bladder partially distended. Small amount of free pelvic fluid, similar to prior. Soft tissue edema / anasarca. Osseous structures stable. [id number] thoracolumbar degenerative disc disease. IMPRESSION: Limited evaluation without contrast. Redemonstration of small-bowel dilatation and bowel wall thickening which is similar/ slightly less pronounced than compared to the previous examination. Differential considerations again include enteritis, inflammatory bowel disease, partial bowel obstruction. Contrast extends to the rectum. Swirling of the mesentery which could be secondary to malrotation. Small bilateral pleural effusions. Bibasilar consolidation /atelectasis. This is slightly increased from the previous examination. Soft tissue edema / anasarca. Atherosclerotic disease. Colonic diverticular disease. Other findings as described.
--- NOTE | 2024-11-19 13:49 | PROGRESS NOTE- Residence ---
Progress Note - Resident Providers to CC Resident Creating Document: JENNIFER DUQUE RES ~ Antibiotic Timeout Antibiotic Ordered?: No Subjective Patient was seen and examined bedside. She states that she had loose bowel movement yesterday night. She has no nausea, vomiting, abdominal pain. She tolerated bland soft diet yesterday. She is not in apparent distress. She is being given oral contrast for an abdominal CT. Objective Vital Signs Date Time Temp Pulse Resp B/P (MAP) Pulse Ox O2 Delivery O2 Flow Rate FiO2 11/19/24 10:11 18 Room Air 11/19/24 08:31 92 11/19/24 05:00 97.7 82 120/74 (89) 11/18/24 20:00 0.0 11/18/24 03:43 21 Result Diagram: 11/19/24 0545 11/19/24 0545 Awake , alert, and oriented x4, appears cachectic, in mild distress HEENT: Atraumatic, normocephalic, EOMI, anicteric sclera ; pink conjunctiva, dry mucous membranes Neck: Trachea midline. Supple, full range of motion, no JVD Cardiac: Regular rhythm, regular rate with no murmurs all over the precordium. Respiratory: Equal breath sounds bilaterally, no tachypnea, no wheezing ,rub or rales, Chest wall is symmetric and without deformity. Gastrointestinal: Abdomen symmetric, non-distended, soft, non-tender, hypoactive bowel sounds, no hepatosplenomegaly Musculoskeletal: No pedal edema, no cyanosis Neurological: Speech is clear, alert, and oriented x 4. No motor or sensory deficit, deep tendon reflexes normal, cerebellar intact. Cranial nerves II-XII intact. Skin: Warm and dry Coagulation Studies Laboratory Tests Test 11/15/24 14:53 Prothrombin Time 11.0 SECONDS (9.0-12.0) INR International Normalized Ratio 1.1 INR Activated Partial Thromboplast Time 31 SECONDS (22-32) Coagulation Comments Assessment Assessment 64-year-old female presented with complaints of nausea and vomiting, admitted for possible ileus or obstruction. Plan Plan # Acute abdomen probably 2/2 ileus vs partial small bowel obstruction CBC is normal Sodium is 128, potassium 3.3 Creatinine is elevated, probably due to dehydration Liver panel normal Lipase is [address] shows multiple distended loops of small bowel, measuring up to 3.4 cm, could be ileus or less likely obstruction Plan: Started on NPO NG tube placed- 150 mL dark green gastric drainage Started on NS 100 mL/hour, IV Zofran 4 mg q.6h, IV Protonix 40 mg Monitor electrolytes We will consider surgery if deterioration of patient 11/16/24: Symptoms improved, passed flatus Her glucose was 75, started her on D5 NS Started on clear liquid diet, which she tolerated Advanced her to full liquid diet, please continue monitoring her tolerance Started Colace 100 mg p.o BID Since she has started clear liquid diet, we have discontinued her D5 NS and continued NS at 100 mL/hour 11/17/24: Discontinued Colace 100 mg b.i.d. 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 -Dr. Turk was consulted, and he recommends EGD tomorrow -Patient on clear liquid diet and NPO from midnight -Plan to consult Gastroenterology for EGD tomorrow # Hyponatremia, likely hypovolemic secondary to vomiting Sodium was 128 on admission 2 L NS given in ED and started NS at 100 mL Sodium has up trended to 133 Monitor BMP 11/16/24: Sodium is 131 Continue NS at 100 mL/hour Monitor BMP 11/17/24: Sodium is 136 Continue NS at 100 mL/hr Monitor BMP 11/18/24: normalized sodium and continue IV NS 11/19/24: normalized sodium and continue IV NS # Hypokalemia possibly secondary to vomiting # hypomagnesemia Potassium was 3.3 on admission Potassium replacement protocol in place Monitor BMP 11/16/24: Potassium up trended to 4.3 Monitor BMP 11/17/24: Potassium is 3.5, continue monitoring 11/18/24: potassium is slightly low with no EKG and clinical symptoms -replace electrolytes including potassium and magnesium as per protocol 11/19/24: Potassium normalized, continue monitoring # ERIK, probably due to prerenal-dehydration- possible renal tubular stasis # elevated BUN creatinine ratio >20 from dehydration # protein calorie malnutrition- moderate Creatinine was 1.03 initially, with BUN of 40 BUN/Cr was elevated-38.8 Continue fluids Monitor BMP 11/16/24: Creatinine downtrended to 0.62 BUN downtrended to 25 BUN/Cr elevated to 40.3 Continue fluids Monitor BMP 11/17/24: Creatinine is 0.59 BUN downtrended to 15 BUN/Cr downtrended to 25.4 Continue fluids Monitor BMP after CT with oral contrast 11/18/24: Corrected calcium show 8.9 which is normal, apparently low from the low serum protein -encourage protein diet 11/19/24: Creatinine is 0.78 BUN downtrended to 5 Continue monitoring BMP # Coronary artery disease # Hypertension Continued her home medications aspirin, apixaban, atorvastatin Lipid profile normal Follow up outpatient 11/18/2024: LDL less than 55 -control the blood pressure and no orthostatic hypotension tests # Dupuytren's contracture # Sciatic pain 11/16/24: Ordered tramadol 50 mg p.o. Follow up outpatient for the possible steroid injection or surgery Code status: Full code DVT prophylaxis: Eliquis GI prophylaxis: Protonix Pain management: Tylenol p.r.n. Diet/nutrition: Clear liquid diet, NPO after midnight Prognosis: Guarded Disposition: Continue medical management, Plan for EGD tomorrow, PT eval and DC plan Resident MD attestation: The patient note has been reviewed and supervised by senior residents PGY-2/ PGY-3. Patient was seen, examined and discussed with attending physician, Dr. Ortega. Jennifer Duque MD Internal Medicine resident, PGY-1 Date of Service: Nov 19, 2024 Billing Provider: DINORA ORTEGA PREETHI, RES Nov 19, 2024 13:49 DINORA ORTEGA DO Nov 19, 2024 14:40
--- NOTE | 2024-11-19 17:38 | PROGRESS NOTE ---
Progress Note ID Providers to CC ~ Progress Note Progress Note: pt seen and examined-no peritonitis-etiology of small bowel thickening unclear- needs ct with iv contrast-may need ex lap SHY BASILIO MD Nov 19, 2024 17:38
[2024-11-19 18:00] VITALS: BP 150/78; PULSE 86; RESP 16; TEMP 97.8; O2SAT 92
[2024-11-19 20:00] VITALS: RESP 18; O2SAT 93
[2024-11-19] MEDS: diatr meglu/diatrizoate 30ml oral sol.-(3 dose) bottle PO SCH (20:33)
[2024-11-19 22:00] VITALS: BP 133/84; PULSE 72; RESP 18; TEMP 97.9; O2SAT 94
[2024-11-19] MEDS: HALLS - SOOTHE MENTHOL 1.8 MG cough drop LOZENGE MM PRN (22:03)
[2024-11-20] VITALS (16 sets, daily range): BP systolic 105–188; BP diastolic 64–91; PULSE 65–81; RESP 15–20; TEMP 97.6–98.1; O2SAT 91–98
[2024-11-20 05:46] LABS: MEAN PLATELET VOLUME 9.1 FL (7.4-10.4); RED CELL DISTRIBUTION WIDTH 16.4 % (11.5-14.5)
[2024-11-20 06:08] LABS: CREATININE 0.68 MG/DL (0.40-0.90); TOTAL CARBON DIOXIDE 24.2 MMOL/L (24-32); eCRCL 69 ML/MIN; eGFR 88 ML/MIN
[2024-11-20] MEDS ORDERED: iohexol 300mg/ml 100ml inj. ONE (07:37)
[2024-11-20] MEDS ORDERED: midazolam 1 mg/ML 2ml injection ONE (09:13)
[2024-11-20] MEDS ORDERED: LIDOcaine 2% (20mg/ml) 5ml vial ONE (09:15)
[2024-11-20] MEDS ORDERED: propofol inj 20 ML IV ONE (09:22)
--- NOTE | 2024-11-20 12:56 | RADIOLOGY REPORT ---
EXAM: CT CT ABDOMEN PELVIS W/ IV ORAL CONTRAST HISTORY: pain TECHNIQUE: Volumetric multidetector CT images of the abdomen and pelvis were obtained after the administration of intravenous contrast. All CT scans at this facility use dose modulation, iterative reconstruction, and/or weight based dosing when appropriate to reduce radiation dose to as low as reasonably achievable. COMPARISON: CT CT ABDOMEN PELVIS W/ ORAL CONTRAST on DOS: 11/19/24 FINDINGS: [LOWER CHEST]: Small bilateral pleural effusions with atelectasis in bilateral lung bases. [LIVER]: Normal hepatic size without suspicious focal lesion. [GALLBLADDER AND BILIARY TREE]: No cholelithiasis. [SPLEEN]: Unremarkable. [PANCREAS]: Unremarkable. [ADRENAL GLANDS]: Unremarkable [KIDNEYS]: No hydronephrosis. No nephroureterolithiasis. No suspicious focal lesion. [BLADDER]: Unremarkable for the degree distention. [REPRODUCTIVE ORGANS]: Unremarkable. [BOWEL/MESENTERY]: Stomach is normal. Slightly dilated small bowel loops measuring at the upper limits of normal cm. No discrete transition point. Correlate with physical exam to exclude ileus/enteritis. Oral contrast extends to the rectum. Sigmoid diverticulosis. [ASCITES]: Mild ascites [LYMPHADENOPATHY]: No pathologically enlarged lymph nodes by CT size criteria [VASCULATURE]: No aneurysmal dilatation. bypass of the abdominal aorta which appears to be patent. Slight twisting morphology of the small bowel mesenteric root vasculature including the superior mesenteric artery and vein. Correlate with clinical exam for intermittent abdominal pain and underlying internal hernia versus malrotation not excluded [ABDOMINAL WALL]: Mild anasarca [MUSCULOSKELETAL]: No acute fracture or aggressive focal osseous lesion. Multifocal degenerative change of the visualized spine. IMPRESSION: 1. Slight twisting morphology of the small bowel mesenteric root vasculature including the superior mesenteric artery and vein. 2. Correlate with clinical exam for intermittent abdominal pain and underlying internal hernia versus malrotation not excluded. 3. Small bilateral pleural effusions with atelectasis in bilateral lung bases.
--- NOTE | 2024-11-20 16:51 | PROGRESS NOTE ---
Progress Note ID Providers to CC ~ Progress Note Progress Note: pt denies pain/vss/abd-nontended/labs noted/ct reviewed 1. assymptomatic bowel wall thickening-clinically doing well/ok to feed-dc in am SHY BASILIO MD Nov 20, 2024 16:51
--- NOTE | 2024-11-20 16:57 | PROGRESS NOTE- Residence ---
Progress Note - Resident Providers to CC Resident Creating Document: BRITTNEY ALSTON, FERNANDO ~ Central Line/PICC still needed: N\A Newsome-Non Protocol Newsome Indications Met/Not Met: F/C Indications Not Met Antibiotic Timeout Antibiotic Ordered?: No Subjective Patient was seen and examined bedside. She has no nausea, vomiting, abdominal pain. She had loose bowel movement yesterday. She was NPO from last night, underwent EGD and CT with oral and IV contrast today. She tolerated clear liquids well yesterday and she has been cleared advance diet by Dr. Turk. Objective Vital Signs Date Time Temp Pulse Resp B/P (MAP) Pulse Ox O2 Delivery O2 Flow Rate FiO2 11/20/24 12:33 74 11/20/24 11:15 97.9 16 142/76 (98) 94 Room Air 11/20/24 10:10 3.0 11/18/24 03:43 21 Result Diagram: 11/20/24 04311/20/24 043 General: Well alert, well oriented, not confused, not agitated, not in acute distress, well cooperated during the physical. HEENT: Conjunctive are pink, sclerae clear, no icterus, pupil is equal in both sides, reactive to light, no ear discharge, no pharyngeal erythema or an edema. Neck: Supple, no JVD, no lymphadenopathy and thyromegaly. Chest: Equal air entry on both lungs, no added sounds, no wheeze. Cardiovascular: S1-S2 regular sinus rhythm and, regular rate, no gallops, no rubs, no murmurs Abdomen: No visible peristalsis, Bowel sounds present on auscultation, soft, nontender, no guarding, no rigidity Extremities: No obvious deformities, no pitting edema bilaterally, capillary refill intact, peripheral pulsations are intact on both sides Central Nervous System: No focal neurological deficits, no motor or sensory weakness in all 4 extremities, could move all 4 extremities, 2+ deep tendon reflexes, negative Babinski. Musculoskeletal: No joint swelling, deformities, inflammations, and no scoliosis and back tenderness Skin: Warm and dry. Coagulation Studies Laboratory Tests Test 11/15/24 14:53 Prothrombin Time 11.0 SECONDS (9.0-12.0) INR International Normalized Ratio 1.1 INR Activated Partial Thromboplast Time 31 SECONDS (22-32) Coagulation Comments Counseling Services Smoking & Tobacco Cessation: N/A Advance Care Planning Advanced Care plannin - 30 Minutes (Full code) Assessment Assessment 64-year-old female presented with complaints of nausea and vomiting, admitted for possible ileus or obstruction. Plan Plan # Acute abdomen probably 2/2 ileus vs partial small bowel obstruction CBC is normal Sodium is 128, potassium 3.3 Creatinine is elevated, probably due to dehydration Liver panel normal Lipase is [address] shows multiple distended loops of small bowel, measuring up to 3.4 cm, could be ileus or less likely obstruction Plan: Started on NPO NG tube placed- 150 mL dark green gastric drainage Started on NS 100 mL/hour, IV Zofran 4 mg q.6h, IV Protonix 40 mg Monitor electrolytes We will consider surgery if deterioration of patient 11/16/24: Symptoms improved, passed flatus Her glucose was 75, started her on D5 NS Started on clear liquid diet, which she tolerated Advanced her to full liquid diet, please continue monitoring her tolerance Started Colace 100 mg p.o BID Since she has started clear liquid diet, we have discontinued her D5 NS and continued NS at 100 mL/hour 11/17/24: Discontinued Colace 100 mg b.i.d. 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 -Dr. Turk was consulted, and he recommends EGD tomorrow -Patient on clear liquid diet and NPO from midnight -Plan to consult Gastroenterology for EGD tomorrow 11/20/2024: WBC count increased to 14.4 today from 0.3 -patient NPO from midnight, passing flatus and not had bowel movement today -endoscopy showed C5 M5 Etlan classification Alfaro's esophagus -CAT scan abdominal pelvis: IMPRESSION: 1. Slight twisting morphology of the small bowel mesenteric root vasculature including the superior mesenteric artery and vein. 2. Correlate with clinical exam for intermittent abdominal pain and underlying internal hernia versus malrotation not excluded. 3. Small bilateral pleural effusions with atelectasis in bilateral lung bases. Dr. Turk consulted, recommended no surgical procedure Advanced her to soft bland diet, we will follow on how she does on the diet # Hyponatremia, likely hypovolemic secondary to vomiting Sodium was 128 on admission 2 L NS given in ED and started NS at 100 mL Sodium has up trended to 133 Monitor BMP 11/16/24: Sodium is 131 Continue NS at 100 mL/hour Monitor BMP 11/17/24: Sodium is 136 Continue NS at 100 mL/hr Monitor BMP 11/18/24: normalized sodium and continue IV NS 11/19/24: normalized sodium and continue IV NS 11/20/2024: Sodium 139, potassium 3.9, we will continue monitor electrolytes. # Hypokalemia possibly secondary to vomiting # hypomagnesemia Potassium was 3.3 on admission Potassium replacement protocol in place Monitor BMP 11/16/24: Potassium up trended to 4.3 Monitor BMP 11/17/24: Potassium is 3.5, continue monitoring 11/18/24: potassium is slightly low with no EKG and clinical symptoms -replace electrolytes including potassium and magnesium as per protocol 11/19/24: Potassium normalized, continue monitoring 11/20/2024: Sodium 139, potassium 3.9, we will continue monitor electrolytes. # ERIK, probably due to prerenal-dehydration- possible renal tubular stasis # elevated BUN creatinine ratio >20 from dehydration # protein calorie malnutrition- moderate Creatinine was 1.03 initially, with BUN of 40 BUN/Cr was elevated-38.8 Continue fluids Monitor BMP 11/16/24: Creatinine downtrended to 0.62 BUN downtrended to 25 BUN/Cr elevated to 40.3 Continue fluids Monitor BMP 11/17/24: Creatinine is 0.59 BUN downtrended to 15 BUN/Cr downtrended to 25.4 Continue fluids Monitor BMP after CT with oral contrast 11/18/24: Corrected calcium show 8.9 which is normal, apparently low from the low serum protein -encourage protein diet 11/19/24: Creatinine is 0.78 BUN downtrended to 5 Continue monitoring BMP 11/20/2024: ERIK resolved with serum creatinine 0.68, BUN 3 Continue monitoring BMP # Coronary artery disease # Hypertension Continued her home medications aspirin, apixaban, atorvastatin Lipid profile normal Follow up outpatient 11/18/2024: LDL less than 55 -control the blood pressure and no orthostatic hypotension tests # Dupuytren's contracture # Sciatic pain 11/16/24: Ordered tramadol 50 mg p.o. Follow up outpatient for the possible steroid injection or surgery Code status: Full code DVT prophylaxis: Eliquis GI prophylaxis: Protonix 40 mg IV b.i.d. Pain management: Tylenol p.r.n. Diet/nutrition: Clear liquid diet, NPO after midnight Prognosis: Guarded Disposition: Anticipate discharge home in 1-2 days Resident MD attestation: The patient note has been reviewed and supervised by senior residents PGY-2/ PGY-3. Patient was seen, examined and discussed with attending physician, Dr. Ortega. Brittney Alston MD Internal Medicine resident, PGY-1 Date of Service: Nov 20, 2024 Billing Provider: DINORA ORTEGA DO Common Visit Codes: [id number] INP/OBS CARE(HIGH) BRITTNEY ALSTON, RES Nov 20, 2024 16:57 DINORA ORTEGA DO Nov 20, 2024 18:33
[2024-11-20] MEDS: lactose-reduced food (Ensure Enlive) - 237ml bottle PO SCH (18:00)
--- NOTE | 2024-11-20 22:20 | CONSULTATION ---
DATE OF CONSULTATION: 11/19/2024 DICTATING PHYSICIAN: Rachael Chappell MD REASON FOR CONSULTATION: Possible EGD. HISTORY OF PRESENT ILLNESS: The patient is a 64-year-old who was admitted with nausea and vomiting. Has a history of CVA. She has been vomiting for about 10 days. No hematemesis. She has had infrequent bowel movements and she reports the last bowel movement was 2 weeks prior to admission. She has been here and she has had consultations from Dr. Turk today. There have been no previous etiology available for possible small bowel obstruction. The CT scan has just simply shown some bowel wall thickening. I am called in to do an EGD prior to possible exploratory lithotomy. PAST MEDICAL HISTORY: As above. FAMILY HISTORY: Noncontributory. PERSONAL HISTORY: Noncontributory. REVIEW OF SYSTEMS: A 12-point review of systems same as history of present illness. PHYSICAL EXAMINATION: GENERAL: She appears to be in no apparent distress. VITAL SIGNS: Normal. HEART: Normal. LUNGS: Normal. ABDOMEN: Soft, nontender. No masses, no organomegaly. Bowel sounds . IMPRESSION: Elderly lady admitted with nausea and vomiting, may have small bowel obstruction. Endoscopy requested and recommended to rule out upper GI pathology. Risks and benefits explained, understands and wishes to proceed. Further recommendations will be made after the endoscopy. Rachael Chappell MD TID: [id number] RECEIPT: [id number] /[facility] [place]
[2024-11-21 05:00] VITALS: BP 134/89; PULSE 74; RESP 14; TEMP 97.9; O2SAT 92
[2024-11-21 07:57] LABS: MEAN PLATELET VOLUME 7.9 FL (7.4-10.4); RED CELL DISTRIBUTION WIDTH 16.5 % (11.5-14.5)
[2024-11-21 08:17] LABS: CREATININE 0.74 MG/DL (0.40-0.90); TOTAL CARBON DIOXIDE 30.0 MMOL/L (24-32); eCRCL 63 ML/MIN; eGFR 80 ML/MIN
[2024-11-21 08:23] LABS: BANDS% (MANUAL) 4.0 % (0-10); LYMPHOCYTES % (MANUAL) 7.0 % (21-51); MONOCYTES % (MANUAL) 10.0 % (2-12); NEUTROPHILS % (MANUAL) 79.0 % (42-75); PLATELET ESTIMATE NORMAL
[2024-11-21 08:24] LABS: LARGE PLATELETS FEW
[2024-11-21 10:00] VITALS: BP 148/94; PULSE 79; RESP 16; TEMP 97.9; O2SAT 93
--- NOTE | 2024-11-21 10:43 | PROGRESS NOTE- Residence ---
Progress Note - Resident Providers to CC Resident Creating Document: JEFF HERNANDEZ RES ~ Antibiotic Timeout Antibiotic Ordered?: No Subjective Patient was seen and examined on bedside she reports that vomiting has been resolved, denies abdominal pain. She has been passing stools which are watery, no blood noted, her last bowel movement was in this morning. Has accepted and tolerated oral feeds Objective Vital Signs Date Time Temp Pulse Resp B/P (MAP) Pulse Ox O2 Delivery O2 Flow Rate FiO2 11/20/24 22:00 98.1 73 15 132/76 (94) 92 Nasal Cannula 1.0 11/18/24 03:43 21 Result Diagram: 11/21/24 0745 11/21/24 0745 General: awake, alert oriented to place, time, and person HEENT: No pallor present, no icterus, moist mucous membranes Neck: No masses and tenderness Resp: Unlabored. Lungs clear to auscultation bilaterally. Chest: Normal expansion. Cardiovascular: Regular Rate and rhythm, normal S1 and S2 without murmur, rub or gallop Abdomen: Soft and non tender in epigastrium, no organomegaly, no guarding and rigidity, bowel sounds present Neuro: No focal weakness in the upper and lower limb muscles, power of the muscles 5/5 bilateral upper and lower extremities, normal reflexes bilaterally. Cranial nerves intact Extremities: No cyanosis,clubbing or edema Skin: Warm and Dry. No lesions Psych: Normal affect Coagulation Studies Laboratory Tests Test 11/15/24 14:53 Prothrombin Time 11.0 SECONDS (9.0-12.0) INR International Normalized Ratio 1.1 INR Activated Partial Thromboplast Time 31 SECONDS (22-32) Coagulation Comments Assessment Assessment 64-year-old female presented with complaints of nausea and vomiting, admitted for possible ileus or obstruction. Plan Plan The patient is a 64-year-old who was admitted with nausea and vomiting. Has a history of CVA. She has been vomiting for about 10 days. No hematemesis. She has had infrequent bowel movements and she reports the last bowel movement was 2 weeks prior to admission. Vomiting possibly Secondary to Small-Bowel Obstruction Vomiting has been resolved. 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 Esophageal and antral sites are biopsied awaiting results Avoid NSAIDs as it can worsen erosive gastritis. Continue IV pantoprazole 40 mg will continue to monitor. Suspect Ileus has resolved. The other comorbidities are being managed per primary care team. Jeff Hernandez PGY 1 IM Date of Service: Nov 21, 2024 Billing Provider: VON RUBIN MD, SANJAY, FERNANDO Nov 21, 2024 10:43 ANIYA RUFF MD Nov 21, 2024 12:39
--- NOTE | 2024-11-21 14:29 | DISCHARGE SUMMARY-Residence ---
Discharge Summary Providers to Resident Creating Document: BRITTNEY ALSTON, RES ~ Discharge Summary Admission Diagnosis: Nausea, vomiting Hospital Course DATE OF ADMISSION: 11/15/2024 DATE OF DISCHARGE: 11/21/2024 Discharge Diagnosis\Comment: Acute Small-bowel obstruction most likely due to adhesions from previous surgery with spontaneous resolution Hypertension Ischemic stroke with residual weakness Operations\Procedures: Endoscopy on 11/20/[address] Huang, dial screw assembler. Consultants: Dr. Turk, surgeon Dr. Huang, dial screw assembler. Complications: None Condition on DC: Stable Continued Medications: Apixaban (Eliquis) 5 Mg Tablet 1 TAB PO Q12H for 30 Days, #60 TAB 0 Refills Aspirin (Aspirin) 81 Mg Tab.chew 1 TAB PO DAILY for 30 Days, #30 TAB Atorvastatin Calcium (Atorvastatin Calcium) 40 Mg Tablet 1 TAB PO DAILY for 30 Days, #30 TAB 0 Refills Benazepril Hcl* (Lotensin*) 10 Mg Tablet 1 TAB PO DAILY for 30 Days, #30 TAB Hydroxyurea (Hydroxyurea) 500 Mg Capsule 1 CAP PO DAILY for 30 Days, #30 CAP 0 Refills Discharge Summary: History of present illness: 64-year-old female with history of hypertension, ischemic stroke and abdominal surgery with iliofemoral bypass came to the ER with complaints of nausea and vomiting with constipation for the past 10 days. She states that she vomits as soon as she eats or drinks anything and that it is sometimes yellow and sometimes dark green. She denies hematemesis and abdominal pain. She is a poor historian but reports minimal p.o. intake for the last 10 days including fluids due to nausea and vomiting. She reports that her last bowel movement was 2 weeks ago but has passage of flatus. She states that she feels lightheaded but has had no falls. She states that she has lost weight but unable to specify how much. She denies recent travel, change in foods or medications, fever, chills. She states that she has central chest discomfort when she is throwing up and feels weak. She also states that she has chronic lower back pain and attributes it to sciatic nerve pain. 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 She denies chest pain, palpitations, shortness of breath, headache, loss of consciousness, confusion, pruritus, burning micturition, tingling in extremities, swelling of lower extremities. Hospital course: CT abdomen on arrival showed distended loops of small bowel. NG tube drained 150 mL of dark green gastric drainage. She was kept NPO and was started on D5 and normal saline. Her hyponatremia and hypokalemia was corrected and she was put on the hospital protocol. Her nausea was treated with Zofran IV 4 mg, her constipation was treated with Colace and lactulose. Her symptoms started to improve, with improving abdominal pain, passing flatus and passing small amount of loose stools. She was started on clear liquid diet, tolerating well. Abdominal CT with oral contrast 11/19/2024 showed small bowel dilatation and bowel wall thickening, swelling of mesentery which could be secondary to mild rotation. Abdominal CT with oral and IV contrast on 11/20/2024 showed slight twisting morphology of small bowel mesenteric root vasculature including superior mesenteric artery and vein. She underwent endoscopy on 11/20/2024 and was found to have C5 M 5 Yale grading Alfaro's esophagus. She was started on IV pantoprazole [address] Turk was consulted, he recommended medical management. She is started on soft, low-fiber diet. She is tolerating the diet well. She was hemodynamically stable and symptomatically better and hence being discharged. Clinical presentation was most consistent with a small-bowel obstruction. However, given the patient's improvement without surgical intervention and normalization of exam, the obstruction most likely resolved spontaneously. Vital Signs Date Time Temp Pulse Resp B/P (MAP) Pulse Ox O2 Delivery O2 Flow Rate FiO2 11/21/24 10:00 97.9 79 16 148/94 (112) 93 Room Air 11/20/24 22:00 1.0 11/18/24 03:43 21 Physical Exam: General: Well alert, well oriented, not confused, not agitated, not in acute distress, well cooperated during the physical. HEENT: Conjunctive are pink, sclerae clear, no icterus, pupil is equal in both sides, reactive to light, no ear discharge, no pharyngeal erythema or an edema. Neck: Supple, no JVD, no lymphadenopathy and thyromegaly. Chest: Equal air entry on both lungs, no added sounds, no wheeze. Cardiovascular: S1-S2 regular sinus rhythm and, regular rate, no gallops, no rubs, no murmurs Abdomen: No visible peristalsis, Bowel sounds present on auscultation, soft, nontender, no guarding, no rigidity Extremities: No obvious deformities, no pitting edema bilaterally, capillary refill intact, peripheral pulsations are intact on both sides Central Nervous System: No focal neurological deficits, no motor or sensory weakness in all 4 extremities, could move all 4 extremities, 2+ deep tendon reflexes, negative Babinski. Musculoskeletal: No joint swelling, deformities, inflammations, and no scoliosis and back tenderness Skin: Warm and dry. Discharge Medications: Continue home medication Eliquis 5 mg p.o. b.i.d., aspirin 81 mg p.o. daily, atorvastatin 40 mg p.o. daily, benazepril 10 mg p.o. daily, hydroxyurea 500 mg p.o. daily. Laboratory Tests Test 11/20/24 04:30 11/21/24 07:45 White Blood Count 14.4 X10'3 16.2 X10'3 Red Blood Count 5.00 X10'6 5.06 X10'6 Hemoglobin 15.9 g/dl 16.2 g/dl Hematocrit 48.5 % 49.0 % Mean Corpuscular Volume 97.1 FL 96.8 FL Mean Corpuscular Hemoglobin 31.8 PG 32.0 PG Mean Corpuscular Hemoglobin Concent 32.8 g/dL 33.0 g/dL Red Cell Distribution Width 16.4 % 16.5 % Platelet Count 360 X10'3 417 X10'3 Mean Platelet Volume 9.1 FL 7.9 FL Neutrophils (%) (Auto) 74.5 % 81.2 % Lymphocytes (%) (Auto) 13.2 % 8.9 % Monocytes (%) (Auto) 10.1 % 8.0 % Eosinophils (%) (Auto) 1.7 % 1.4 % Basophils (%) (Auto) 0.5 % 0.5 % Neutrophils # (Auto) 10.7 X10'3 13.1 X10'3 Lymphocytes # (Auto) 1.9 X10'3 1.4 X10'3 Monocytes # (Auto) 1.4 X10'3 1.3 X10'3 Eosinophils # (Auto) 0.3 X10'3 0.2 X10'3 Basophils # (Auto) 0.1 X10'3 0.1 X10'3 CBC Comment Sodium Level 139 MMOL/L 138 MMOL/L Potassium Level 3.9 MMOL/L 3.7 MMOL/L Chloride Level 107 MMOL/L 104 MMOL/L Carbon Dioxide Level 24.2 MMOL/L 30.0 MMOL/L Anion Gap 8 4 Blood Urea Nitrogen 3 MG/DL 5 MG/DL Creatinine 0.68 MG/DL 0.74 MG/DL Estimated GFR/1.73 m2 88 ML/MIN 80 ML/MIN BUN/Creatinine Ratio 4.4 6.8 Glucose Level 73 MG/DL 89 MG/DL Calcium Level 7.2 MG/DL 7.8 MG/DL Total Bilirubin 0.3 MG/DL 0.3 MG/DL Aspartate Amino Transf (AST/SGOT) 16 U/L 12 U/L Alanine Aminotransferase (ALT/SGPT) 9 U/L 9 U/L Alkaline Phosphatase 58 IU/L 62 IU/L Total Protein 4.8 G/DL 5.3 G/DL Albumin 2.0 G/DL 2.2 G/DL Globulin 2.8 G/DL 3.1 G/DL Albumin/Globulin Ratio 0.7 0.7 Chemistry Comments Differential Total Cells Counted 100 Neutrophils % (Manual) 79.0 % Band Neutrophils % 4.0 % Lymphocytes % (Manual) 7.0 % Monocytes % (Manual) 10.0 % Platelet Estimate Normal Large Platelets Few Red Blood Cell Morphology Perf Basophilic Stippling Anisocytosis 1+ Macrocytosis 1+ Imaging: Abdominal pelvis CT 11/15/2024 IMPRESSION: Multiple distended loops of small bowel measures up to 3.4 cm could be ileus or less likely obstruction. Chest x-ray 11/15/2024: NO ACUTE CARDIOPULMONARY PROCESS. Abdomen pelvis CT with IV contrast 11/17/2024: Limited evaluation without contrast. Diffuse small bowel dilatation, bowel wall thickening with surrounding stranding, small amount of ascites fluid. Overall this is increased from the previous examination. Differential considerations would include enteritis, inflammatory disease, partial SBO. Swirling of the mesentery. Recommend surgical consultation to exclude malrotation. Contrast within the colon. Colonic diverticular disease.Pericholecystic edema / stranding which can be secondary to cholecystitis. Tiny bilateral pleural effusions. Abdomen pelvis CT with oral contrast 11/19/2024: Limited evaluation without contrast. Redemonstration of small-bowel dilatation and bowel wall thickening which is similar/ slightly less pronounced than compared to the previous examination. Differential considerations again include enteritis, inflammatory bowel disease, partial bowel obstruction. Contrast extends to the rectum. Swirling of the mesentery which could be secondary to malrotation. Small bilateral pleural effusions. Bibasilar consolidation /atelectasis. This is slightly increased from the previous examination. Soft tissue edema / anasarca. Atherosclerotic disease. Colonic diverticular disease. Abdomen pelvis CT with oral and IV contrast 11/20/2024: 1. Slight twisting morphology of the small bowel mesenteric root vasculature including the superior mesenteric artery and vein. 2. Correlate with clinical exam for intermittent abdominal pain and underlying internal hernia versus malrotation not excluded. 3. Small bilateral pleural effusions with atelectasis in bilateral lung bases. Discharge instructions: Continue soft bland diet for a week. Follow up with primary care in 2 weeks/ Visit ER immediately in case of intractable nausea, vomiting, abd pain. Countiue all your home meds. Brittney Alston MD PGY1, Internal Medicine [facility] *Problems/Diagnosis: (1) Hypertension Status: Chronic (2) Ischemic stroke Status: Chronic (3) Small bowel obstruction due to adhesions Status: Acute Total Time Spent on D/C: > 30 Minutes Counseling Services Smoking & Tobacco Cessation: N/A Date of Service: Nov 21, 2024 Billing Provider: DEWAYNE NARAYAN MD Common Visit Codes: [id number] INP/OBS CARE(HIGH) BRITTNEY ALSTON, FERNANDO Nov 21, 2024 13:45 BLAINE THORNTON RES Nov 21, 2024 16:19 DEWAYNE NARAYAN MD Nov 23, 2024 05:35
--- NOTE | 2024-11-21 15:47 | PATHOLOGY REPORT ---
[facility] [address] [place] [address] SURGICAL PATHOLOGY REPORT CaseNumber: [id number] Surgeon:Rachael Chappell M.D. CLINICAL INFORMATION CLINICAL INFORMATION: Epigastric abdominal pain, small bowel obstruction. Josiah's esophagus. DIAGNOSIS DIAGNOSIS: A.GASTRIC ANTRUM, BIOPSIES X 2 - NO SIGNIFICANT INFLAMMATION, EDEMA, OR VASCULAR CONGESTION - NO INTESTINAL METAPLASIA BY PAS STAINING - NO DYSPLASIA OR MALIGNANCY - NO H. 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 MICROSCOPIC DESCRIPTION A. GASTRIC ANTRUM, BIOPSIES X 2 MICROSCOPIC DESCRIPTION: Reviewed is a single H&E-stained slide showing serial sections and levels of two fragments of gastric antral-type mucosa. There is no significant inflammation, edema, or vascular congestion. There is no intestinal metaplasia by PAS staining. There are no dysplastic or neoplastic features. Also, no H. pylori organisms are highlighted by immunohistochemistry. B. ESOPHAGUS, BIOPSIES X 3 MICROSCOPIC DESCRIPTION: Reviewed is a single H&E-stained slide showing sections and levels of three fragments of gastric mucosa associated with a tiny attached portion of squamous mucosa. Within the stroma of the gastric mucosa, chronic inflammatory cells are mildly increased in number in some areas and are associated with mildly reactive stromal and glandular changes. Prominent goblet cell-type intestinal metaplasia is highlighted by Alcian blue staining. There are no dysplastic or neoplastic features. Within the squamous mucosa there are a few lymphocytes. There are no intramucosal eosinophils or neutrophils. No fungal elements are highlighted by PAS staining. Again, there are no dysplastic or neoplastic features. GROSS DESCRIPTION A. GASTRIC ANTRUM, BIOPSIES X 2 GROSS DESCRIPTION: Received in a container of formalin labeled with the patient's name, number, and "antrum BX" are 2 pieces of bess tissue 0.5 x 0.1 x 0.1 and 0.6 x 0.1 x 0.1 centimeters. The specimen is entirely submitted as A1. The time at which the specimen was removed was 922. The time at which the specimen was placed in formalin was 922. B. ESOPHAGUS, BIOPSIES X 3 GROSS DESCRIPTION: Received in a container of formalin labeled with the patient's name, number, and "esophagus BX" are 3 pieces of bess tissue 0.2 cm each. The specimen is entirely submitted as B1. The time at which the specimen was removed was 923. The time at which the specimen was placed in formalin was 923. Electronically signed by: Cameron Johnson M.D. 11/21/2024 3:15:00 PM
== END 2024-11-21 13:58 | disposition home or self-care (01) | DRG 247 ==
LOC: ER 07:40 → ED HOLD 13:30 → SUR 3N 19:35
PROVIDERS: ADMIT Internal Medicine; ATTEND Internal Medicine
PROC: 0D9670Z Drainage of Stomach with Drainage Device, Via Natural or Artificial Opening (ICD-10-PCS; 2024-11-15)
PROC: BW211ZZ Computerized Tomography (CT Scan) of Abdomen and Pelvis using Low Osmolar Contrast (ICD-10-PCS; 2024-11-15)
PROC: 0DB78ZX Excision of Stomach, Pylorus, Via Natural or Artificial Opening Endoscopic, Diagnostic (ICD-10-PCS; 2024-11-20)
PROC: BW211ZZ Computerized Tomography (CT Scan) of Abdomen and Pelvis using Low Osmolar Contrast (ICD-10-PCS; 2024-11-20)
PROC: 0DB58ZX Excision of Esophagus, Via Natural or Artificial Opening Endoscopic, Diagnostic (ICD-10-PCS; principal; 2024-11-20 09:05)
DX: K56.50 Intestinal adhesions [bands], unspecified as to partial versus complete obstruction (principal); E87.1 Hypo-osmolality and hyponatremia; E86.0 Dehydration; I10 Essential (primary) hypertension; F17.210 Nicotine dependence, cigarettes, uncomplicated; E87.6 Hypokalemia; M72.0 Palmar fascial fibromatosis [Dupuytren]; I25.10 Atherosclerotic heart disease of native coronary artery without angina pectoris; K22.70 Barrett's esophagus without dysplasia; K31.89 Other diseases of stomach and duodenum; K25.9 Gastric ulcer, unspecified as acute or chronic, without hemorrhage or perforation; Z86.73 Personal history of transient ischemic attack (TIA), and cerebral infarction without residual deficits
CPT/HCPCS: 36415; 43239; 71045; 72131; 74176; 74177; 80053; 80061; 81001; 82948; 83036; 83605; 83690; 83735; 84100; 85007; 85025; 85610; 85730; 87081; 87324; 87449; 96361; 96365; 96375; 97116; 97161; 97530; 99285; A4615; A4620; A6250; A6258; G0378; J2003; J2250; J2405; J2470; J2704; J3475; J3480; J3490; J7030; J7042; J7120; Q9963; Q9967